=== PATIENT | female | born 1975 | race Two or more races ===

== ENCOUNTER 2016-11-20 00:55 | Emergency (ER) | payer SELFPAY ==
[~2016-11-20] VITALS: Ht 165.1 cm; Wt 76.7 kg
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
[2016-11-20 01:12] VITALS: BP 123/79
[2016-11-20 01:17] VITALS: BP 123/79
== END 2016-11-20 01:20 ==
LOC: EMR 01:04
DX: S22.32XA Fracture of one rib, left side, initial encounter for closed fracture (principal); Y08.89XA Assault by other specified means, initial encounter; Y92.9 Unspecified place or not applicable; F17.200 Nicotine dependence, unspecified, uncomplicated; Z88.8 Allergy status to other drugs, medicaments and biological substances
CPT/HCPCS: 99283